=== PATIENT | male | born 1995 ===

== ENCOUNTER 2018-12-07 10:09 | Emergency (ER) | payer OTHER ==
[2018-12-07 10:15] VITALS: BP 129/78; PULSE 93; RESP 18; TEMP 98; O2SAT 97
--- NOTE | 2018-12-07 10:25 | C.PDOC ---
History Of Present Illness 23 y/o male presents to ER c/o sore throat for several days, associated with pain with swallowing and pain radiating to the left ear. He denies cough, runny nose, fever, rashes, chest pain, SOB. Patient has no significant PMHx. Time Seen by Provider: 12/07/18 10:12 Chief Complaint (Nursing): ENT Problem History Per: Patient History/Exam Limitations: no limitations Onset/Duration Of Symptoms: Days Current Symptoms Are (Timing): Still Present Sick Contacts (Context): None Associated Symptoms: Sore Throat Severity: Mild Past Medical History Reviewed: Historical Data, Nursing Documentation, Vital Signs Vital Signs: Last Vital Signs Temp 98 F 12/07/18 10:12 Pulse 93 H 12/07/18 10:12 Resp 18 12/07/18 10:12 BP 129/78 12/07/18 10:12 Pulse Ox 97 12/07/18 10:12 - Medical History PMH: No Chronic Diseases Surgical History: No Surg Hx Family History: States: No Known Family Hx - Social History Hx Alcohol Use: Yes Hx Substance Use: No Review Of Systems Constitutional: Negative for: Fever, Chills ENT: Positive for: Ear Pain (radiated from sore throat ), Throat Pain. Negative for: Nose Discharge Cardiovascular: Negative for: Chest Pain, Palpitations Respiratory: Negative for: Cough, Shortness of Breath Skin: Negative for: Rash Physical Exam - Physical Exam Appears: Well, Non-toxic, In Acute Distress (in mild pain ) Skin: Normal Color, Warm, Dry, No Rash Ear(s): Bilateral: Normal Nose: Normal Oral Mucosa: Moist Throat: Erythema, Exudate (B/L ), No Drooling, Other (uvula midline and normal in appearance ) Lymphatic: No Adenopathy Cardiovascular: Rhythm Regular Respiratory: Normal Breath Sounds, No Rales, No Rhonchi, No Wheezing Neurological/Psych: Oriented x3 ED Course And Treatment O2 Sat by Pulse Oximetry: 97 (RA) Pulse Ox Interpretation: Normal Progress Note: Physical exam suspicious for bacterial pharyngitis. Patient given PO Amoxicillin and PO Ibuprofen. Rxs for same + chloraseptic spray given. Patient instructed to follow up with PMD/clinic in 1-2 days, and understands he should return to ED if symptoms worsen. Reevaluation Time: 10:35 Reassessment Condition: Improved Disposition Counseled Patient/Family Regarding: Studies Performed, Diagnosis, Need For Followup, Rx Given - Disposition Referrals: [facility] [Outside] Disposition: HOME/ ROUTINE Disposition Time: 10:35 Condition: STABLE Additional Instructions: FOLLOW UP WITH YOUR DOCTOR OR CLINIC IN 1-2 DAYS USE ANTIBIOTICS UNTIL FINISHED RETURN TO EMERGENCY ROOM IF YOUR SYMPTOMS BECOME WORSE SEGUIRSE CON VARGAS MD[place] O CLNICA EN 1-2 ROSSI UTILIZAR ANTIBIOTICOS HASTA TERMINAR VUELVA A LA SAQIB DE EMERGENCIA SI MAMIE SNTOMAS SE HACEN [place] Prescriptions: Amoxicillin 875 mg PO BID #14 tab Ibuprofen [Motrin Tab] 600 mg PO Q6 PRN #30 tab PRN Reason: fever/pain Phenol/Glycerin [Chloraseptic Max [place]] 1 spray MM Q6 PRN #1 spray PRN Reason: THROAT PAIN Instructions: Strep Throat (DC) Forms: [employer] (Hebrew) Print Language: TELUGU - Clinical Impression Clinical Impression: Pharyngitis - Scribe Statement The provider has reviewed the documentation as recorded by the Jessika Barth Do Provider Attestation: All medical record entries made by the Scribe were at my direction and personally dictated by me. I have reviewed the chart and agree that the record accurately reflects my personal performance of the history, physical exam, medical decision making, and the department course for this patient. I have also personally directed, reviewed, and agree with the discharge instructions and disposition.
[2018-12-07] MEDS ORDERED: Amoxicillin-Clav 500-125 mg Tab PO ONE (10:40)
== END 2018-12-07 10:44 | disposition home or self-care (01) ==
LOC: C.ER 10:09
DX: J02.9 Acute pharyngitis, unspecified (principal)